=== PATIENT | female | born 1970 | race Caucasian/White ===

== ENCOUNTER 2017-04-14 11:41 | Emergency (ER) | payer MEDICAID ==
[~2017-04-14] VITALS: Ht 157.5 cm; Wt 92.0 kg
[2017-04-14 11:50] VITALS: BP 150/84; PULSE 101; RESP 16; TEMP 98.4; O2SAT 100
[2017-04-14] MEDS ORDERED: PRED10 PO (11:57)
[2017-04-14] MEDS ORDERED: NEUR300C PO (11:57)
[2017-04-14] MEDS ORDERED: CYCL1TAB29 PO (12:24)
--- NOTE | 2017-04-14 12:28 | PD ---
HPI Chief Complaint: Injury Time Seen by Provider: 12:20 Travel History International Travel<30 days: No Contact w/Intl Traveler<30days: No Traveled to known affect area: No History of Present Illness HPI Patient comes in complaining of sharp stabbing right low back pain that began last night after slip and fall on hardwood floor. Patient denies hitting her head or any loss consciousness. Denies any loss or change in bowel or bladder, numbness or tingling anywhere, abdominal pain, nausea, vomiting, chest pain, shortness of breath, or . Patient denies anything making it better. Pain is worse certain movement. Reports pain radiates into her groin. PFSH Past Medical History Arthritis: Yes (RA) ?: Not Tubal Ligation: Yes Social History Alcohol Use: No Tobacco Use: No Substance Use: No Allergies-Medications (Allergen,Severity, Reaction): Coded Allergies: Penicillins (Verified Allergy, Unknown, Rash, 04/14/17) ibuprofen (Verified Allergy, Unknown, Shortness of Breath, 04/14/17) Reported Meds & Prescriptions Reported Meds & Active Scripts Active Flexeril (Cyclobenzaprine HCl) 10 Mg Tab 10 Mg PO Q8HR PRN Reported Neurontin (Gabapentin) 300 Mg Cap 300 Mg PO TID Prednisone 10 Mg Tab 10 Mg PO TID Review of Systems Except as stated in HPI: all other systems reviewed are Neg Physical Exam Narrative GENERAL: Well-developed, overly nourished, in no acute distress, and non-ill appearing. SKIN: Focused skin assessment warm and dry. HEAD: Atraumatic. Normocephalic. EYES: Pupils equal and round. EOMI. No scleral icterus. No injection or drainage. ENT: No nasal bleeding or discharge. Mucous membranes pink and moist. NECK: Trachea midline. Supple. No nuclear rigidity. CARDIOVASCULAR: Dorsal pulses 2+, intact, and equal bilaterally. RESPIRATORY: No accessory muscle use. No respiratory distress. GASTROINTESTINAL: Abdomen soft, non-tender, nondistended, and no guarding. Hepatic and splenic margins not palpable. No pulsatile mass. MUSCULOSKELETAL: No obvious deformities. No clubbing. No cyanosis. No edema. Full range of motion. Hip: FROM and equal BL with passive flexion, extension, Abduction, Adduction, and internal/external rotation. Pulses equal BL distal to injury. Capillary refill less than 2 seconds distal to injury and equal BL. FROM distal to injury and equal BL. Strength distal to injury equal BL. NV intact distal to injury and equal BL. Plantar flexion and dorsal flexion equal BL. Dorsal pulses equal BL. Sensation equal BL 1st web space. No crepitus or tenderness over midline of the lumbar spine. Patient reports tenderness to right lateral lumbar muscles. Straight leg test positive on right. NEUROLOGICAL: Awake and alert. No obvious cranial nerve deficits. Motor grossly within normal limits. Normal speech. PSYCHIATRIC: Appropriate mood and affect; insight and judgment normal. Data Data Last Documented VS Vital Signs Date Time Temp Pulse Resp B/P (MAP) Pulse Ox O2 Delivery O2 Flow Rate FiO2 04/14/17 11:50 98.4 101 16 150/84 (106) 100 Orders Orders Ed Discharge Order (04/14/17 12:28) [facility] Medical Decision Making Medical Screen Exam Complete: Yes Emergency Medical Condition: Yes Differential Diagnosis Fracture, strain, contusion, other Narrative Course Patient presents with apparent back strain. The patient presented complaining of back pain. There was history of preceding trauma. The patients pain complaint and exam were consistent with soft tissue injury and not consistent with bony injury. There were no subjective or objective findings to support radiographic evaluation. There is no midline spine pain or tenderness and no significant distracting injury to suggest associated spine injury. The patient has no neurological complaints. The patient has been behaving normally and no notable altered mental status. [place] score of 15. The patients neurological exam is normal with normal motor and sensory. There is no saddle paresthesias reported and no bowel or bladder incontinence or retention. Clinical suspicion, plan of care and management was discussed with the patient. The patient was instructed to follow up with their health care provider. The patient was also instructed to return if the pain worsened, changed, or developed weakness or bowel or bladder trouble. The patient agreed with plan. . There was no evidence to support genitourinary etiology. There is also no evidence to suggest vascular pathology such as AAA dissection. No fevers or other evidence to suspect infectious processes, abscess etc. Patient in no obvious distress upon re-evaluation. Patient was asked if they wanted to speak to my attending, which the patient did not wish to do at this time. Any questions/concerns in reference to patient diagnosis/condition discussed and clarified prior to patient's discharge. Reinforced sheer importance of close follow up with patient's primary physician or primary care clinic. Instructed patient to return to ED immediately, if symptoms return/ worsen. Patient showed understanding of above instructions. Further instructions and recommendations were detailed in discharge paperwork. Patient ambulated without difficulty out of ED at discharge. Diagnosis Primary Impression: Low back strain Qualified Codes: S39.012A - Strain of muscle, fascia and tendon of lower back , initial encounter Referrals: [facility] Patient Instructions: Acute Low Back Pain (ED), General Instructions, Low Back Strain (ED), Lower Back Exercises (ED) Additional Instructions: Follow-up with your primary care physician in 4-7 days for reevaluation. Take all medication as prescribed. Use [id number] Tylenol as needed for additional pain control. Follow instructions on the packaging. Return to the emergency department if symptoms get worse. Med/Other Pt SpecificInfo: Prescription(s) given Scripts Cyclobenzaprine (Flexeril) 10 Mg Tab 10 MG PO Q8HR Y for MUSCLE PAIN, #15 TAB 0 Refills Prov: Olga Arroyo DO 04/14/17 Disposition: 01 DISCHARGE HOME Condition: Stable Maged Baker Apr 14, 2017 12:28
== END 2017-04-14 13:06 | disposition home or self-care (01) ==
LOC: PHEFT 11:41
DX: S39.012A Strain of muscle, fascia and tendon of lower back, initial encounter (principal); W18.30XA Fall on same level, unspecified, initial encounter
CPT/HCPCS: 99283